=== PATIENT | male | born 1995 | race African-American/Black ===

== ENCOUNTER 2021-10-01 15:12 | Emergency (ER) | payer SELFPAY ==
[~2021-10-01] VITALS: Ht 177 cm; Wt 86.0 kg
[2021-10-01] MEDS ORDERED: CEPHALEXIN 250 MG (KEFLEX) CAP PO ONE (16:30)
[2021-10-01] MEDS ORDERED: RX-MUPIROCIN (BACTROBAN) 2% OINT 22 GM TUBE TOP STA (16:30)
--- NOTE | 2021-10-01 16:39 | ED Integumentary General ---
General Chief Complaint: Allergic Reaction Stated Complaint: RASH X 2 MONTHS Nursing Triage Note: PT PRESENTS TO ED FOR RASH ALL OVER BODY X'S TWO MONTHS. 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 REPORTS HE HAS BEEN SEENT AND GIVEN STEROID TX BUT NO IMPROVEMENT. RASH ITCHES. MOM AT BEDSIDE. PT AMB. TO [facility] WITHOUT DIFFICULTY. Source: patient Exam Limitations: no limitations History of Present Illness Date Seen by Provider: Oct 01, 2021 Time Seen by Provider: 16:15 Initial Comments Patient to the ER by private conveyance with his significant other chief complaint that for the past couple weeks she has had a rash that he broke out. He is not sure if he is allergic something at his work but he says his lip started getting inflamed after using his vaporizer. He put some hand shipper/receiver on it but that only made it swell up and get worse. He went to urgent care and they put him on steroid pills and steroid creams which made the smaller Open rash get better but the rash that is open and weeping on his right hand got worse. He has significant itching and took a Benadryl but it made him very drowsy so he is not taking anything else Allergies and Home Medications Allergies Coded Allergies: No Known Drug Allergies (Unverified , 05/14/16) Patient Home Medication List Home Medication List Reviewed: Yes Bacitracin (Bacitraycin Plus) 28 Gm Oint...g., 1 GM TP BID Prescribed by: DINO ARBOLEDA on 10/01/211647 Cephalexin (Cephalexin) 500 Mg Capsule, 500 MG PO QID Prescribed by: DINO ARBOLEDA on 10/01/211647 Review of Systems Review of Systems Constitutional: No chills, No diaphoresis EENTM: No ear discharge, No ear pain Respiratory: No cough, No short of breath Cardiovascular: No chest pain, No palpitations Gastrointestinal: No abdominal pain, No constipation, No diarrhea Genitourinary: No discharge, No dysuria Musculoskeletal: No back pain, No joint pain Skin: see HPI, pruritus, rash Past Mtrntqk-Klhzaw-Qhrsar Hx Patient Social History Tobacco Use?: Yes Tobacco type used: Cigarettes Smoking Status: Current Someday Smoker Use of E-Cig and/or Vaping dev: Yes E-Cig or Vaping type used: Nicotine, Synthetic Cannabinoids Substance use?: Yes Substance type: Marijuana Substance frequency: Couple times a week Alcohol Use?: No Pt feels they are or have been: No Immunizations Up To Date Tetanus Booster (TDap): Less than 5yrs Past Medical History Surgery/Hospitalization HX: PMH;DENIES. SURGERY;COLONOSCOPY 2020. TONSILECTOMY AND EAR TUBES A CHILD. Physical Exam Vital Signs Vital Signs - First Documented 10/01/21 15:30 Temp 36.2 Pulse 78 Resp 18 B/P (MAP) 145/77 (99) Pulse Ox 99 O2 Delivery Room Air Capillary Refill : Less Than 3 Seconds General Appearance: WD/WN, no apparent distress HEENT: PERRL/EOMI, pharynx normal, other Neck: full range of motion, supple, normal inspection Cardiovascular: normal peripheral pulses, regular rate, rhythm Respiratory: lungs clear, normal breath sounds, no respiratory distress, no accessory muscle use Gastrointestinal: non tender, soft Neurologic/Psychiatric: alert, normal mood/affect, oriented x 3 Skin: other (Small patches about 1 cm diameter papules that are pruritic consistent with a contact dermatitis all over the trunk, upper extremities, face. 2 patches over the dorsum of the right hand approximately 3 x 4 cm each that are broken down erythematous base with honey colored crusts. No surrounding erythema. Similar honey colored crust and erythema over the back of the left upper arm.) Procedures/Interventions Suture Size: 5-0 Progress/Results/Core Measures Results/Orders My Orders Orders - DINO ARBOLEDA Cephalexin Capsule (Keflex Capsule) (10/01/21 16:30) Rx-Mupirocin 2% Oint (Rx-Bactroban) (10/01/21 16:30) Medications Given in ED Current Medications Medications Dose Ordered Sig/Franco Route Start Time Stop Time Status Last Admin Dose Admin Cephalexin HCl 500 mg ONCE ONCE PO 10/01/21 16:30 10/01/21 16:34 DC 10/01/21 16:43 500 MG Vital Signs/I&O 10/01/21 15:30 Temp 36.2 Pulse 78 Resp 18 B/P (MAP) 145/77 (99) Pulse Ox 99 O2 Delivery Room Air Blood Pressure Mean: 99 Progress Progress Note : Time: 16:39 Progress Note The underlying rash appears to be contact dermatitis and it got better with the steroids. However he has impetigo and an infected broken down skin on the back of his left arm as well as his right dorsal hand. We will put some bacitracin and Keflex on it 4 times a day. This should help him resolve it. We will put him on a hypoallergenic skin ointment regimen of Cetaphil, Neutrogena etc. We will also instruct him to use Zyrtec 10 mg twice a day as needed for itching with breakthrough controlled with Benadryl. He has a follow-up appointment in 2-1/2 weeks with a retail commission sales associate in [place]. Return precautions discussed. Departure Impression Primary Impression: Contact dermatitis Qualified Codes: L25.9 - Unspecified contact dermatitis, unspecified cause Additional Impression: Impetigo any site Disposition: HOME, SELF-CARE Condition: Stable Departure-Patient Inst. Decision time for Depature: 16:41 Referrals: NO,LOCAL PHYSICIAN (PCP/Family) Primary Care Physician Patient Instructions: Impetigo (DC), Skin Rash (DC) Add. Discharge Instructions: The original rash appears to be Contact Dermatitis which is caused by your immune system overreacting to some kind of an irritant. This is known as an allergy. It could have been something splashed on your skin such as the cleaning solutions or could be from the oils that you work with. It could also be related to your vaporizer pen so I highly recommend you discontinue using that. The areas on the back your hand and your left arm have become infected and this is called impetigo. Cover the infected areas of impetigo with a thin layer of bacitracin twice a day and dress with a clean dry gauze dressing at least daily. Change it more frequently if it becomes soiled until the wounds heal over. Do not clean the wounds with peroxide, alcohol, iodine, chlorhexidine or other astringents as this will slow wound healing. You are starting to have some infection in the soft tissue around the impetigo so were going to put you on an antibiotic. This will also keep you from developing other or worsening infection. Keflex/cephalexin 500 mg 4 times a day for a week. You can stop taking the steroid. While steroids will help with the underlying contact dermatitis they will not help with the infection and may slow wound healing. While you are at home if you wish to keep the impetigo open to air with a thin layer of bacitracin that would be acceptable. Keep your follow-up appointment with the retail commission sales associate. Keep the rest of your skin healthy with a hypoallergenic emollient such as Cetaphil, Neutra Derm, CeraVe, etc. If you are having itching then use Zyrtec/cetirizine or Claritin/loratadine 10 mg once or twice a day to control itching. These last all day and do not cause drowsiness. If you have breakthrough itching then you can use Benadryl 1 or 2 tablets every 6 hours as needed but it will cause drowsiness. Drink plenty of fluids. Return to the ER if you are having worsening symptoms, intractable pain or fever especially above 102.5. All discharge instructions reviewed with patient and/or family. Voiced understanding. Scripts Bacitracin (Bacitraycin Plus) 28 Gm Oint...g. 1 GM TP BID for 7 Days, #1 EA 0 Refills Prov: DINO ARBOLEDA 10/01/21 Cephalexin (Cephalexin) 500 Mg Capsule 500 MG PO QID for 7 Days, #28 CAP 0 Refills Prov: DINO ARBOLEDA 10/01/21 Work/School Note: Work Release Form Date Seen in the Emergency Department: Oct 01, 2021 Return to Work: Oct 01, 2021 Restrictions: Need Release from Doctor Other Restrictions Listed Below: Keep wounds clean, dry and dressed until healed. DINO ARBOLEDA Oct 01, 2021 16:39
[2021-10-01] MEDS ORDERED: CEPH500C PO (16:48)
[2021-10-01] MEDS ORDERED: BACI28OI5 TP (16:48)
[2021-10-01 17:00] VITALS: BP 132/76
== END 2021-10-01 17:00 | disposition home or self-care (01) ==
LOC: EDUNIT# 15:12 → ER 15:13
DX: L25.9 Unspecified contact dermatitis, unspecified cause (principal); L01.00 Impetigo, unspecified; F17.210 Nicotine dependence, cigarettes, uncomplicated
CPT/HCPCS: 99283